=== PATIENT | male | born 1960 | race Caucasian/White ===

== ENCOUNTER 2019-01-27 13:56 | Emergency (ER) | payer OTHER, MEDICAID ==
[~2019-01-27] VITALS: Ht 170.2 cm; Wt 68.0 kg
[2019-01-27 14:42] VITALS: BP 130/74
[2019-01-27] MEDS: KETOROLAC TROMETH 60MG/2ML VIAL IM ONE ×2 (15:22→15:37)
[2019-01-27] MEDS: diphenhdrAMINE HCL 50 MG/1 ML VL IM ONE ×2 (15:22→15:36)
== END 2019-01-27 15:24 | disposition left against medical advice (07) ==
LOC: EDBD 13:56 → EDUNIT# 13:56 → ER 13:56
DX: M54.5 Low back pain (principal); G89.29 Other chronic pain; Z76.0 Encounter for issue of repeat prescription; I10 Essential (primary) hypertension; Z88.0 Allergy status to penicillin
CPT/HCPCS: 96372; 99283; J1200; J1885